=== PATIENT | male | born 1965 | race Caucasian/White ===

== ENCOUNTER 2018-10-15 10:03 | Outpatient (REF) | payer MEDICARE, MEDICAID, SELFPAY ==
[2018-10-15 19:00] LABS: Calculated LDL 98 mg/dL; Cholesterol 152 mg/dL (50-200); Glucose 98 mg/dL (70-100); HDL Cholesterol 48 mg/dL (40-60); Triglyceride 30 mg/dL (30-150)
== END 2018-10-15 10:23 ==
LOC: NCHCN 10:03
PROVIDERS: PCP Internal Medicine; Visit Provider Nurse Practitioner Family
DX: R69 Illness, unspecified (principal); Z13.1 Encounter for screening for diabetes mellitus; Z13.6 Encounter for screening for cardiovascular disorders
CPT/HCPCS: 80061; 82947; 83721

== ENCOUNTER 2022-01-21 08:09 | Emergency (ER) | payer MEDICARE, MEDICAID, SELFPAY ==
[2022-01-21 08:15] VITALS: BP 107/67; PULSE 67; RESP 16; TEMP 36.3; O2SAT 99
--- NOTE | 2022-01-21 08:15 | DI.RAD_ITS ---
Exam(s) XR HAND RT COMPLETE EXAM: XR HAND RT COMPLETE CLINICAL HISTORY: Fall. TECHNIQUE: 2D digital imaging was performed. COMPARISON: No exams were available for comparison FINDINGS: There is prominent soft tissue swelling over the dorsal aspect of the hand. There are nondisplaced transverse fractures at the proximal aspects of the 3rd and 4th finger proxima l phalanges.. No radiopaque foreign body. No osseous lesions. IMPRESSION: Nondisplaced adjacent fractures at the bases of the proximal phalanges 3rd and 4th fingers. No radio paque foreign body. No osseous lesions. DATA REPOSITORY: RADIATION DOSE DELIVERED:
--- NOTE | 2022-01-21 08:28 | W.ED.GENAD ---
Discharge Plan Disposition Patient Disposition: HOME Condition: Stable Discharge Details Clinical Impression: Fracture of proximal phalanx of digit of right hand Primary Care Provider: Cedric Jackson ED Provider: Florin Ramos Home Meds and New Rx's Prescriptions: Continued ibuprofen 600 MG tablet 600 mg PO Q8H PRN (Reason: Pain) Qty: 12 0RF Discharge Instructions Instructions: Finger Fracture (ED) Additional Instructions: Please keep splint in place and keep it clean and dry until you see orthopedist for more permanent splinting. You may continue to use [id number] medications such as Tylenol or ibuprofen for further discomfort. If there are any new or worsening symptoms to return the emergency department for reassessment. Referrals: [facility] [Provider Group] (Please call the office on Sunday for arrangement of follow-up appointment.) Medical Decision Making Patient presenting to the emergency department for chief complaint of fall with right hand injury. Patient and caregiver deny any other injury or trauma. Patient has significantly swollen right palmar and dorsal aspect of the hand with ecchymosis throughout the palmar and dorsal aspect. Patient states most pain is with movement of fingers but patient still has intact sensation cap refill and movement of fingers. We will plan on performing radiological imaging for evaluation of acute fracture. Pending results we will give ibuprofen for pain. Review of radiological imaging and radiologist interpretation shows proximal phalanx fractures at the base that are minimally displaced. Patient placed in a Ortho-Glass splint and placed on the Ortho follow-up list. After discussion of diagnosis and plan of care patient, caregiver, and guardian have no further needs, questions, or concerns and states clear understanding to return to the emergency department for any worsening symptoms. This documentation was generated using [employer] system, please disregard any oddities of phrase or misspellings. Imaging Data Radiologic Study: Attestation: I personally reviewed and interpreted this imaging study as follows: Imaging: X-Ray Radiologist's impression: FINDINGS: Bones/joints: There is a transverse, extra-articular, minimally displaced fracture through the base of the 3rd proximal phalanx. There is a transverse, minimally displaced, extra-articular fracture through the base of the 4th proximal phalanx. No dislocation. Soft tissues: Unremarkable. IMPRESSION: Minimally displaced 3rd and 4th proximal phalangeal base fractures. HPI General Mode of arrival: ambulatory. Date/Time Provider Initiated Documentation: 01/21/22 08:09. Limitations to Documentation: language barrier. Information obtained by: patient. History of Present Illness 57 year old M presents to the emergency department with the chief complaint of right hand injury, fall, described as severe, and is localized to the right. Patient started experiencing this day(s) (1) and it has been constant. Movement worsens symptoms . Patient notes no other symptoms.. Patient did receive the following treatments prior to arrival, NSAID Related Data Home Medications Medication Instructions Recorded Confirmed ibuprofen 600 mg tablet 600 mg PO Q8H PRN Pain ##12 05/31/17 01/21/22 Previous Rx's Medication Instructions Recorded ibuprofen 600 mg tablet 600 mg PO Q8H PRN Pain ##12 05/31/17 Allergies Allergy/AdvReac Type Severity Reaction Status Date / Time No Known Allergies Allergy Unverified 01/21/22 08:24 General Stated Complaint: Orthopedic JULIA: 4 Review of Systems Narrative: 6 systems reviewed and unremarkable except what is marked below. Musculoskeletal Musculoskeletal: Reports as per HPI, Reports joint swelling, Reports limited range of motion, Denies numbness and Denies tingling Integumentary/Breasts Skin/Breast: Reports unusual bruising Neurologic Neurologic: Denies numbness and Denies tingling PFSH All Active Problems (Updated 01/21/22 @ 09:12 by Florin Ramos NP) Fracture of proximal phalanx of digit of right hand (Acute) Medical History Bronchitis Cognitive developmental delay Dermatitis Lumbago Overweight Tobacco use disorder Surgical History Colonoscopy - MAC (02/12/17) Social History Smoking/Tobacco Use Status: Current-Occasional Tobacco Type: smokeless tobacco Smoking risk assessment performed?: Yes Alcohol Intake: never Drug use: Never Substance use type: does not use Do you feel safe at home: Yes Do you feel safe in your relationship?: Yes Exam Const General: cooperative, no acute distress and not ill appearing Orientation: alert, awake and oriented x3 HENMT Head: normal to inspection and atraumatic Resp Effort & Inspection: normal respiratory effort, able to speak in complete sentences and no respiratory distress Cardio Rate: regular rate Rhythm: regular rhythm Pulses: normal peripheral pulses Skin General skin exam: no rashes or lesions noted Neuro General: patient alert, patient awake, patient oriented x3, moves all extremities and no focal motor deficits Sensory Exam: no sensory deficits noted Extrem Right upper extremity: wrist Details: normal ROM; no tenderness and no swelling and hand Details: normal to inspection, normal capillary refill, neurosensory exam normal, vascular exam Details: radial pulse present, abnormal ROM of finger Details: pain with active ROM, swelling and ecchymosis Location: of the dorsal hand and of the palm Course Vital Signs Vital signs: Vital Signs Temperature 36.3 C L 01/21/22 08:15 Pulse 67 01/21/22 08:15 Respiratory Rate 16 01/21/22 08:15 Blood Pressure 107/67 01/21/22 08:15 Pulse Oximetry 99 01/21/22 08:15 Temperature 36.3 C L 01/21/22 08:15 Temperature Source Oral 01/21/22 08:15 Pulse 67 01/21/22 08:15 Respiratory Rate 16 01/21/22 08:15 Respiratory Effort Non-Labored 01/21/22 08:22 Blood Pressure 107/67 01/21/22 08:15 Blood Pressure Position Sitting 01/21/22 08:15 Pulse Oximetry 99 01/21/22 08:15 Oxygen Delivery Method Room Air 01/21/22 08:15 Oxygen Flow Rate 0 01/21/22 08:15 Pain Level 10 01/21/22 08:22 Procedures Orthopedic Splinting/Casting Injury #1: Side: right Upper Extremity Injury Location: hand Upper Extremity Immobilizer: posterior splint and volar splint
[2022-01-21] MEDS: Ibuprofen 600 MG TAB PO (08:30)
--- NOTE | 2022-01-21 10:26 | DI.VRAD_ITS ---
PROCEDURE INFORMATION: Exam: XR Right Hand Exam date and time: 01/21/2022 8:38 AM Age: 57 years old Clinical indication: Other: Fall, pain third fourth fifth digits/metacarpals TECHNIQUE: Imaging protocol: Radiologic exam of the Right hand. Views: 3 or more views. COMPARISON: No relevant prior studies available. FINDINGS: Bones/joints: There is a transverse, extra-articular, minimally displaced fracture through the base of the 3rd proximal phalanx. There is a transverse, minimally displaced, extra-articular fracture through the base of the 4th proximal phalanx. No dislocation. Soft tissues: Unremarkable. IMPRESSION: Minimally displaced 3rd and 4th proximal phalangeal base fractures. Dictated and Authenticated by: Swathi Calvillo MD. Ordering:IVANA Catherine MD
== END 2022-01-21 09:17 | disposition home or self-care (01) ==
PROVIDERS: Emergency Provider Nurse Practitioner Family; PCP Internal Medicine
DX: S62.642A Nondisplaced fracture of proximal phalanx of right middle finger, initial encounter for closed fracture (principal); S62.644A Nondisplaced fracture of proximal phalanx of right ring finger, initial encounter for closed fracture; W19.XXXA Unspecified fall, initial encounter
CPT/HCPCS: 29130; 99283; 73130

== ENCOUNTER 2022-01-31 10:05 | Outpatient (CLI) | payer MEDICARE, MEDICAID, SELFPAY ==
--- NOTE | 2022-01-31 09:45 | DI.RAD_ITS ---
Exam(s) XR HAND RT COMPLETE EXAM: XR HAND RT COMPLETE CLINICAL HISTORY: PROXIMAL PHALANX OF DIGIT FX OF RIGHT HAND F/U. TECHNIQUE: 2D digital imaging was performed. COMPARISON: CR,XR XR HAND RT COMPLETE from 01/21/2022 FINDINGS: 3 views There is dorsal soft tissue swelling. Again noted are the transverse fractures in the proximal aspec ts of 3rd and 4th metacarpals. Fracture lines are still evident. No significant displacement. No n ew fractures. No obvious callus formation. IMPRESSION: Persistent nondisplaced fracture lines at the bases of the 3rd and 4th metacarpals, appearing unchang ed from 01/21/2022. DATA REPOSITORY: RADIATION DOSE DELIVERED:
== END 2022-01-31 10:06 | disposition home or self-care (01) ==
LOC: DIORS 10:06
PROVIDERS: PCP Internal Medicine; Referring Provider Internal Medicine; Visit Provider Student in an Organized Health Care Education/Training Program
DX: S62.612A Displaced fracture of proximal phalanx of right middle finger, initial encounter for closed fracture (principal); S62.614A Displaced fracture of proximal phalanx of right ring finger, initial encounter for closed fracture; W19.XXXA Unspecified fall, initial encounter
CPT/HCPCS: 99203; 99213; 73130

== ENCOUNTER 2022-02-28 09:44 | Outpatient (CLI) | payer MEDICARE, MEDICAID, SELFPAY ==
--- NOTE | 2022-02-28 09:34 | DI.RAD_ITS ---
Exam(s) XR HAND RT COMPLETE EXAM: XR HAND RT COMPLETE CLINICAL HISTORY: right hand fx f/u. TECHNIQUE: 2D digital imaging was performed of the right hand. Three images were obtained. AP, late ral and oblique views were obtained. COMPARISON: CR XR HAND RT COMPLETE from 01/31/2022 FINDINGS: BONES: There has been no change in alignment of the fractures involving the proximal aspects of the 3 rd proximal phalanges of the 3rd and 4th fingers. There is some callus formation about the fracture of the 4th proximal phalanx suggesting some interval healing. There is deformity of the ulnar aspect of the head of the 3rd metacarpal which may represent a nondisplaced fracture. No bony destructive lesion is seen. JOINTS: No dislocation present. SOFT TISSUE: Normal. IMPRESSION: Stable fractures involving the right hand as described above. DATA REPOSITORY: RADIATION DOSE DELIVERED:
== END 2022-02-28 09:45 | disposition home or self-care (01) ==
LOC: DIORS 09:45
PROVIDERS: PCP Internal Medicine; Referring Provider Internal Medicine; Visit Provider Student in an Organized Health Care Education/Training Program
DX: S62.611D Displaced fracture of proximal phalanx of left index finger, subsequent encounter for fracture with routine healing (principal); X58.XXXD Exposure to other specified factors, subsequent encounter
CPT/HCPCS: 99213; 73130

== ENCOUNTER 2022-12-28 16:55 | Outpatient (REF) | payer MEDICARE, MEDICAID, SELFPAY ==
[2022-12-28 20:02] LABS: Anion Gap 6.5 mmol/L (3-11); BUN 16 mg/dL (7-18); CO2 27.5 mmol/L (21.0-32.0); CREATININE 1.2 mg/dL (0.70-1.30); Calcium 9.5 mg/dL (8.5-10.1); Calculated LDL 100 mg/dL (<100); Chloride 107 mmol/L (98-107); Cholesterol 167 mg/dL (<200); Estimated GFR 70.98 (mL/min/1.73m2); Glucose 104 mg/dL (74-106); HDL Cholesterol 55 mg/dL (40-60); Potassium 4.1 mmol/L (3.5-5.1); Sodium 141 mmol/L (136-145); Triglyceride 62 mg/dL (<150)
[2022-12-29 19:39] LABS: PSA, Screening 1.3 ng/mL (<=3.5)
== END 2022-12-28 16:56 | disposition home or self-care (01) ==
LOC: NCHCN 16:55
PROVIDERS: PCP Internal Medicine; Visit Provider Internal Medicine
DX: H91.90 Unspecified hearing loss, unspecified ear (principal); Z00.00 Encounter for general adult medical examination without abnormal findings; M54.50 Low back pain, unspecified
CPT/HCPCS: 80048; 80061; 84153

== ENCOUNTER → 2023-03-22 01:45 | Outpatient (CLI) | payer MEDICARE, MEDICAID, SELFPAY ==
[2023-03-22] MEDS: Gadoterate meglumine 20 ML SYRINGE 18 ML IVP (10:00)
[2023-03-22] MEDS: Normal Saline Flush 10 ML SYR IVP (10:02)
--- NOTE | 2023-03-22 10:45 | DI.MRI_ITS ---
Exam(s) MR IAC BRAIN WO/W EXAM: MR IAC BRAIN WO/W CLINICAL HISTORY: Asymmetrical hearing loss,IMPAIRMENT OF SPEECH,h90.3,h93.299. TECHNIQUE: Multiplanar multisequence MRI of the brain and internal auditory canals was performed. CONTRAST MATERIAL: IV Contrast: 18 mL of Dotarem contrast administered. COMPARISON: No exams were available for comparison FINDINGS: The examination is limited due to patient motion artifact. VENTRICLES AND EXTRA AXIAL SPACES: Normal in size and morphology for the patient's age. HEMORRHAGE: None. CEREBRAL PARENCHYMA: No focus of restricted diffusion to suggest acute infarct. No space-occupying le devin identified. MIDLINE SHIFT: None. BRAINSTEM/CEREBELLUM: Normal. CALVARIUM: Normal. ENHANCEMENT: No suspicious enhancement identified. VISUALIZED PARANASAL SINUSES/MASTOIDS: Clear. SOLOMON OF ALLAN: Normal flow void. PITUITARY GLAND: Unremarkable. IAC/CP ANGLE: The internal auditory canals are within normal limits. The cerebellar pontine angles ar e unremarkable. No enhancing lesions are seen. Visualized portion of the facial nerves appear within normal limits. OTHER FINDINGS: None. IMPRESSION: Unremarkable MRI of the brain and internal auditory canals. DATA REPOSITORY:
== END ==
PROVIDERS: PCP Internal Medicine; Visit Provider Registered Nurse Maternal Newborn
DX: H90.3 Sensorineural hearing loss, bilateral (principal); H93.293 Other abnormal auditory perceptions, bilateral
CPT/HCPCS: 70553

== ENCOUNTER → 2023-04-24 11:20 | Outpatient (BNVA) | payer MEDICARE, MEDICAID, SELFPAY | PROVIDERS: PCP Internal Medicine; Referring Provider Internal Medicine; Visit Provider Podiatrist | DX: B35.1 Tinea unguium (principal); L60.3 Nail dystrophy; E11.43 Type 2 diabetes mellitus with diabetic autonomic (poly)neuropathy; M79.674 Pain in right toe(s); M79.675 Pain in left toe(s) | CPT/HCPCS: 11720 ==

== ENCOUNTER → 2023-08-22 10:49 | Outpatient (BNVA) | payer MEDICARE, MEDICAID, SELFPAY | PROVIDERS: PCP Internal Medicine; Referring Provider Internal Medicine; Visit Provider Podiatrist | DX: B35.1 Tinea unguium (principal); L60.3 Nail dystrophy; M79.674 Pain in right toe(s); M79.675 Pain in left toe(s) | CPT/HCPCS: 11721 ==

== ENCOUNTER → 2023-12-26 10:45 | Outpatient (BNVA) | payer MEDICARE, MEDICAID, SELFPAY | PROVIDERS: PCP Internal Medicine; Referring Provider Internal Medicine; Visit Provider Podiatrist | DX: L60.3 Nail dystrophy (principal); B35.1 Tinea unguium; M79.674 Pain in right toe(s); M79.675 Pain in left toe(s) | CPT/HCPCS: 11719; 11720 ==

== ENCOUNTER → 2024-06-18 10:46 | Outpatient (BNVA) | payer MEDICARE, MEDICAID, SELFPAY | PROVIDERS: PCP Internal Medicine; Referring Provider Internal Medicine; Visit Provider Podiatrist | DX: L60.3 Nail dystrophy (principal); M79.674 Pain in right toe(s); M79.675 Pain in left toe(s); B35.1 Tinea unguium | CPT/HCPCS: 11720 ==

== ENCOUNTER → 2024-11-03 09:49 | Outpatient (BNVA) | payer MEDICARE, MEDICAID, SELFPAY | PROVIDERS: PCP Internal Medicine; Referring Provider Internal Medicine; Visit Provider Podiatrist ==

== ENCOUNTER 2025-01-22 12:24 | Outpatient (REF) | payer MEDICARE, MEDICAID, SELFPAY ==
[2025-01-22 20:04] LABS: ALT 24 U/L (16-63); AST 18 U/L (15-37); Albumin 3.9 g/dL (3.4-5.0); Alkaline Phosphatase 69 U/L (46-116); Anion Gap 8.1 mmol/L (3-11); BUN 17 mg/dL (7-18); Bilirubin, Total 0.4 mg/dL (0.2-1.0); CO2 27.9 mmol/L (21.0-32.0); Calcium 9.1 mg/dL (8.5-10.1); Chloride 105 mmol/L (98-107); Cholesterol 162 mg/dL (<200); Glucose 98 mg/dL (74-106); HDL Cholesterol 60 mg/dL (>or=40); Potassium 4.2 mmol/L (3.5-5.1); Sodium 141 mmol/L (136-145); Total Protein 8.0 g/dL (6.4-8.2)
[2025-01-23 18:00] LABS: PSA, Screening 2.2 ng/mL (<=3.5)
== END 2025-01-22 12:25 | disposition home or self-care (01) ==
LOC: NCHCN 12:24
PROVIDERS: PCP Internal Medicine; Visit Provider Physician Assistant
DX: Z13.220 Encounter for screening for lipoid disorders (principal); Z12.5 Encounter for screening for malignant neoplasm of prostate
CPT/HCPCS: 80053; 80061; 84153